=== PATIENT | female | born 1940 | race Caucasian/White ===

== ENCOUNTER 2017-01-18 09:37 | Inpatient (IN) ==
[2017-01-18] MEDS: Fenofibrate 54 MG TABLET PO SCH (21:06)
[2017-01-19 05:15] LABS: INR 2.4; Prothrombin Time 25.8 Seconds (9.4-12.1)
[2017-01-19 05:17] LABS: Activated Partial Thrombo Time 36.9 Seconds (26.0-36.0)
[2017-01-19] MEDS: *HR* OxyCODONE/APAP 5/325 TABLET PO PRN ×3 (05:18→19:56)
[2017-01-19 05:22] LABS: Basophils % 0.5 %; Eosinophils # 0.2 K/mcL (0.0-0.6); Eosinophils % 2.5 %; Hematocrit 26.6 % (35.3-44.9); Hemoglobin 8.8 g/dL (11.5-15.4); Immature Granulocytes % 0.6 % (0-4); Lymphocytes # 2.2 K/mcL (0.6-4.6); Lymphocytes % 26.8 %; Mean Corpuscular HGB Conc 33.1 g/dL (31.6-35.5); Mean Corpuscular Hemoglobin 30.8 pg (28.0-33.3); Mean Platelet Volume 10.4 fL (9.4-12.4); Monocytes # 0.8 K/mcL (0.0-1.3); Monocytes % 9.4 %; Platelet Count 307 K/mcL (140-400); Red Blood Count 2.86 M/mcL (3.82-4.97); Red Cell Distribution Width 13.9 % (11.5-14.5); Segmented Neutrophils % 60.2 %
[2017-01-19 05:26] LABS: Calcium 9.4 mg/dL (8.6-10.8); Potassium 4.3 mEq/L (3.5-4.5)
--- NOTE | 2017-01-19 07:29 | Internal Med History&Physical ---
Date of Encounter: 01/19/17 Time of Encounter: 07:26 Assessment and Plan (1) HTN (hypertension) Current visit: No Status: Chronic on meds stable conitnue home meds Qualifiers: Hypertension type: essential hypertension Qualified Code(s): I10 - Essential (primary) hypertension (2) CAD (coronary artery disease) Current visit: No Status: Chronic hx of CAD stable on meds . S/P stent some time ago continue present meds on beta blockers and cholesterol control Qualifiers: Associated angina: without angina Qualified Code(s): I25.10 - Atherosclerotic heart disease of [place] coronary artery without angina pectoris (3) Hypothyroid Current visit: No Status: Chronic Hx f Hypothyroid . On Synthyroid continue meds. Labs if needed especially if not done recently Qualifiers: Hypothyroidism type: unspecified Qualified Code(s): E03.9 - Hypothyroidism , unspecified (4) A-fib Current visit: No Status: Chronic hx of proximal A fib She is in regular rate and rhythm . Continue to monitor Qualifiers: Atrial fibrillation type: paroxysmal Qualified Code(s): I48.0 - Paroxysmal atrial fibrillation (5) Anemia Current visit: Yes Status: Chronic stable s/p surgery On iron supplement Qualifiers: Anemia type: iron deficiency Qualified Code(s): D50.0 - Iron deficiency anemia secondary to blood loss (chronic) (6) Gout Current visit: No Status: Chronic on Allupurinol . will get labs if needed . stable at the present time Qualifiers: Gout site: unspecified site Qualified Code(s): M10.9 - Gout, unspecified (7) Status post knee surgery Current visit: Yes Status: Acute s/p surgery doing fine on rehab Overall condition is stable . She is on DVT prophalxsis . She is on warfarin , most likely due to hx of Proxi A fib . Will need to review her records/ Internal Medicine - H&P: HPI Admitted From: Hospital to Hospital Transfer Plans for Post Hospital Care: Home History of present illness: Ms. Skinner is a 76 year old female with significant hx of HTN , PE about few years ago ,was admitted s/p Knee Surgery left side for rehab and continuation of treatment . She denies any complains at the present time . No fever or chill nausea vomiting or diarrhea No headache weakness of arms or legs or any focal weakness . No chest pain SOB or any other complains Incision site pain is well controlled . no loss of weight no seizures . Overall she feels well She is able to manage her affairs at home by her self Past Med Surg Social Fam HX - Past Medical History Medical history: arthritis, atrial fibrillation, cancer, CHF, DVT, GERD, hyperlipidemia, pulmonary embolus, renal disease, thyroid disease, other Psychiatric history: no psych history - Past Surgical History Surgical History: angioplasty/stent, appendectomy, breast surgery, cholecystectomy, knee replacement, other - Social History Smoking Status: Never smoker Smokeless Tobacco Status: No Alcohol use: none Drug use: none - Family History Mother Living Status: Cause of : heart disease Hx Family Cardiac Disorders: Yes Internal Medicine - H&P: Meds Albuterol Sulfate [Albuterol Inhaler] 2 puff IH Q4HR PRN 01/18/17 [History] Allopurinol [Zyloprim 100 MG] 100 mg PO DAILY 01/18/17 [History] Aspirin [Ecotrin] 325 mg PO DAILY 01/18/17 [History] Bisoprolol Fumarate [Zebeta] 5 mg PO DAILY 01/18/17 [History] Cholecalciferol (D-3) [Vitamin D] 2,000 unit PO DAILY 01/18/17 [History] Fenofibrate Nanocrystallized [Tricor] 48 mg PO HS 01/18/17 [History] Ferrous Sulfate [Iron] 325 mg PO BIDWM 01/18/17 [History] Furosemide [Lasix] 20 mg PO DAILY 01/18/17 [History] Lansoprazole [Prevacid] 15 mg PO DAILY PRN 01/18/17 [History] Levothyroxine [Synthroid] 75 mcg PO 1200 01/18/17 [History] amLODIPine [Norvasc] 5 mg PO DAILY 01/18/17 [History] 3 Allergy/AdvReac Type Severity Reaction Status Date / Time No Known Allergies Allergy Verified 01/18/17 16:20 All Systems PM: A 10-system review of systems was performed and is negative for pertinent findings except as documented above in the HPI. - Constitutional Constitutional: no anorexia, no chills, no excessive sweating, no fatigue, no fever(s), no falls, no lethargy, no malaise, no night sweats, no weakness, no weight gain - EENT Eyes: no blurry vision, no decreased night vision, no diplopia, no discharge, no dry eye, no itchy eyes Ears: no ear discharge, no ear pain, no tinnitus Nose, mouth and throat: no change in voice, no dental pain, no dry mouth, no dysphagia, no epistaxis - Breasts Breasts: no mass, no nipple discharge, no swelling, no other Additional comments: hx of mastectomy left side due to ca breast - Cardiovascular Cardiovascular ROS IM: no chest pain, no claudication, no diaphoresis, no dyspnea, no dyspnea on exertion, no edema, no irregular heart rhythm, no lightheadedness, no orthopnea - Respiratory Respiratory: no cough, no dyspnea, no hemoptysis, no dyspnea on exertion, no wheezing, no snoring, no pain on inspiration, no chest congestion, no excessive phlegm production - Gastrointestinal Gastrointestinal: no abdominal pain, no belching, no bloating, no change in bowel habits, no coffee ground emesis, no cramping, no diarrhea, no dyspepsia, no dysphagia, no excessive flatus, no fecal incontinence, no heartburn, no hematemesis, no loose stools - Genitourinary Genitourinary: no change in urinary stream, no urinary frequency, no urinary hesitancy, no urinary urgency, no vaginal discharge - Musculoskeletal Musculoskeletal ROS IM: no arthralgias, no back pain, no muscle cramps, no myalgias - Neurological Neurological ROS: no abnormal gait, no abnormal speech, no disequilibrium, no dizziness, no focal weakness, no frequent falls, no memory loss, no paresthesias - Endocrine Additional comments: menopause - Hematologic/Lymphatic Hematologic/Lymphatic: no easy bleeding, no lymphadenopathy - Constitutional Vitals: Temp Pulse Resp BP Pulse Ox 98.6 F 77 20 158/71 91 01/19/17 04:02 01/19/17 04:02 01/19/17 04:02 01/19/17 04:02 01/19/17 04:02 General appearance: Absent: cooperative, A&O X 3, pleasant, no acute distress - Head Head exam: Present: normal inspection - Eye Eye exam: Present: EOMI, PERRL. Absent: conjunctival injection, periorbital swelling, scleral icterus, conjuntiva pink, sclera anicteric - ENT ENT exam: Present: mucous membranes moist, normal oropharynx - Neck Neck exam general surgery: Present: full ROM, normal inspection, supple. Absent : tenderness, nuchal rigidity, thyromegaly - Respiratory Respiratory exam: Present: CTAB. Absent: chest wall tenderness, decreased breath sounds, rhonchi, wheezes Additional comments: Air entry all lungs jimenez essentially clear - Cardiovascular Cardiovascular exam: Present: RRR, systolic murmur. Absent: JVD, tachycardia Additional comments: systolic murmur prominent at 2nd intercostal area left sternum radiates to both neck both sides - GI/Abdominal GI/Abdominal exam: Present: normal bowel sounds, soft. Absent: distended, guarding, mass, pulsatile mass, rebound, rigid, tenderness, no peritoneal signs - Rectal Rectal exam: Present: deferred - Additional comments: Deferred - Extremities Exam Extremities exam: Present: radial pulses palpable and symmetrical. Absent: cyanotic, full ROM, mottling, pedal edema, tenderness - Back Exam Back exam: Present: normal inspection. Absent: CVA tenderness (L), CVA tenderness (R), muscle spasm, tenderness - Neurological Exam Neurological exam: Present: alert, CN II-XII intact, oriented X3, reflexes normal, no focal deficits. Absent: facial droop, speech deficit - Skin Skin exam: Present: intact. Absent: abrasion, cyanosis, erythema, excoriation, rash Internal Med - H&P Results - Labs CBC & Chem 7: 01/19/17 05:05 01/19/17 05:05 Labs: Short CBC 01/19/17 Range/Units 05:05 WBC 8.3 (4.3-11.1) K/mcL Hgb 8.8 L (11.5-15.4) g/dL Hct 26.6 L (35.3-44.9) % Plt Count 307 (140-400) K/mcL Neutrophils # 5.0 (1.6-8.9) K/mcL BMP 01/19/17 05:05 Sodium 139 Potassium 4.3 Chloride 107 Carbon Dioxide 20 BUN 22 H Creatinine 1.15 H Glucose 88 Calcium 9.4 - VTE Documentation of Mechanical Device: Graduated compression elastic hosiery
[2017-01-19] MEDS: Aspirin Enteric Coated 325 MG Tablet PO SCH (09:00)
[2017-01-19] MEDS: Celecoxib 200 MG CAPSULE PO SCH (09:00)
[2017-01-19] MEDS: amLODIPine 5 MG TABLET PO SCH (09:00)
[2017-01-19] MEDS: Furosemide 20 MG TABLET PO SCH (09:00)
[2017-01-19] MEDS: BISOPROLOL FUMARATE 5 MG PO SCH (09:01)
[2017-01-19] MEDS: Cholecalciferol (D-3) 1,000 UNIT TABLET PO SCH (09:01)
[2017-01-19] MEDS: *HR* Warfarin 1 MG TABLET PO SCH (16:49)
[2017-01-19] MEDS: Fenofibrate 54 MG TABLET PO SCH (19:57)
[2017-01-20 05:48] LABS: Calcium 9.2 mg/dL (8.6-10.8); Potassium 4.9 mEq/L (3.5-4.5)
[2017-01-20] MEDS: *HR* OxyCODONE/APAP 5/325 TABLET PO PRN ×2 (06:40→20:15)
[2017-01-20 07:36] LABS: Basophils % 0.5 %; Eosinophils # 0.4 K/mcL (0.0-0.6); Eosinophils % 6.2 %; Hematocrit 26.7 % (35.3-44.9); Hemoglobin 8.8 g/dL (11.5-15.4); Immature Granulocytes % 0.8 % (0-4); Lymphocytes # 1.8 K/mcL (0.6-4.6); Lymphocytes % 27.5 %; Mean Platelet Volume 9.8 fL (9.4-12.4); Monocytes # 0.7 K/mcL (0.0-1.3); Monocytes % 10.5 %; Neutrophils # 3.6 K/mcL (1.6-8.9); Platelet Count 328 K/mcL (140-400); Red Blood Count 2.84 M/mcL (3.82-4.97); Red Cell Distribution Width 13.8 % (11.5-14.5); Segmented Neutrophils % 54.5 %
[2017-01-20 07:47] LABS: INR 2.1; Prothrombin Time 22.9 Seconds (9.4-12.1)
[2017-01-20 07:50] LABS: Activated Partial Thrombo Time 28.7 Seconds (26.0-36.0)
--- NOTE | 2017-01-20 08:26 | Internal Med Progress Note ---
Date of Encounter: 01/20/17 Time of Encounter: 08:23 - Assessment and plan (1) HTN (hypertension) Current Visit: No Status: Chronic Assessment and plan: slight high will follow . On multiple meds Qualifiers: Hypertension type: essential hypertension Qualified Code(s): I10 - Essential (primary) hypertension (2) CAD (coronary artery disease) Current Visit: No Status: Chronic Assessment and plan: stable no acute issues Qualifiers: Associated angina: without angina Qualified Code(s): I25.10 - Atherosclerotic heart disease of [place] coronary artery without angina pectoris (3) Hypothyroid Current Visit: No Status: Chronic Assessment and plan: on meds stable TSH is pending Qualifiers: Hypothyroidism type: unspecified Qualified Code(s): E03.9 - Hypothyroidism , unspecified (4) A-fib Current Visit: No Status: Chronic Assessment and plan: Hx of A fib On anticoagulation rate stable on warfarin INR is stable Noted mild increase in creatinine and K levels . She is on Lasix will increase fluid intake and followup . Qualifiers: Atrial fibrillation type: paroxysmal Qualified Code(s): I48.0 - Paroxysmal atrial fibrillation (5) Anemia Current Visit: Yes Status: Chronic Assessment and plan: stable Labs noted same . On iron no new issues Qualifiers: Anemia type: iron deficiency Qualified Code(s): D50.0 - Iron deficiency anemia secondary to blood loss (chronic) (6) Gout Current Visit: No Status: Chronic Assessment and plan: stable no pain . gout is stable on meds conintue present dose and medication Qualifiers: Gout site: unspecified site Qualified Code(s): M10.9 - Gout, unspecified (7) Status post knee surgery Current Visit: Yes Status: Acute Assessment and plan: stable pain is well controlled . starting rehab - Subjective Interval history: No new complains Slpet well . S/ P Knee replacement . Her pain is well controlled . No nausea vomiting or diarrhea No constipation NO SOB overall feels well - Constitutional Vitals: Temp Pulse Resp BP Pulse Ox 98.2 F 73 18 154/59 94 01/20/17 07:14 01/20/17 07:14 01/20/17 07:14 01/20/17 07:14 01/20/17 07:14 General appearance: Absent: cooperative, A&O X 3, pleasant, no acute distress - Head Head exam: Present: normal inspection - Eye Eye exam: Present: EOMI, normal appearance, PERRL - ENT ENT exam: Present: mucous membranes moist - Neck Neck exam general surgery: Present: supple. Absent: tenderness, nuchal rigidity Additional comments: carotid bruits negative however cardiac murmurs heard both side - Respiratory Respiratory exam: Present: CTAB. Absent: decreased breath sounds, respiratory distress, stridor, wheezes, tachypnea - Cardiovascular Cardiovascular exam: Present: RRR, systolic murmur. Absent: bradycardia, clicks , gallop, irregular rhythm, JVD Additional comments: systolic murmur radiates to both carotids - GI/Abdominal GI/Abdominal exam: Present: normal bowel sounds, soft. Absent: guarding, rebound, rigid - Extremities Exam Extremities exam: Present: warm. Absent: pedal edema, tenderness Internal Medicine: Result - Labs CBC & Chem 7: 01/20/17 07:29 01/20/17 05:25 Labs: Short CBC 01/20/17 Range/Units 07:29 WBC 6.7 (4.3-11.1) K/mcL Hgb 8.8 L (11.5-15.4) g/dL Hct 26.7 L (35.3-44.9) % Plt Count 328 (140-400) K/mcL Neutrophils # 3.6 (1.6-8.9) K/mcL BMP 01/20/17 05:25 Sodium 140 Potassium 4.9 H Chloride 109 Carbon Dioxide 19 BUN 28 H Creatinine 1.52 H Glucose 84 Calcium 9.2 - ABG Interpretation ABG results: PT/INR, D-dimer PT 22.9 Seconds (9.4-12.1) H 01/20/17 07:29 - VTE Documentation of Mechanical Device: Graduated compression elastic hosiery Consult Discharge Plan - Plan Referrals: Mima Sood [Primary Care Provider] - (Follow up with Leo Echols MD in 2 weeks. [phone] Follow up with Jake Perez MD. Pulmonary Function Test on April 02, 2017 at 2:30. [phone]. )
[2017-01-20] MEDS: Cholecalciferol (D-3) 1,000 UNIT TABLET PO SCH (08:49)
[2017-01-20] MEDS: Celecoxib 200 MG CAPSULE PO SCH (08:49)
[2017-01-20] MEDS: Aspirin Enteric Coated 325 MG Tablet PO SCH (08:50)
[2017-01-20] MEDS: Furosemide 20 MG TABLET PO SCH (08:50)
[2017-01-20] MEDS: amLODIPine 5 MG TABLET PO SCH (08:50)
[2017-01-20] MEDS: BISOPROLOL FUMARATE 5 MG PO SCH (08:51)
[2017-01-20] MEDS: *HR* Warfarin 1 MG TABLET PO SCH (17:38)
[2017-01-20] MEDS: Fenofibrate 54 MG TABLET PO SCH (20:13)
[2017-01-21] MEDS: *HR* OxyCODONE/APAP 5/325 TABLET PO PRN ×3 (05:32→21:55)
[2017-01-21 05:37] LABS: Prothrombin Time 22.1 Seconds (9.4-12.1)
[2017-01-21] MEDS ORDERED: Acetaminophen 325 MG TABLET PO STA (07:49)
[2017-01-21] MEDS: Celecoxib 200 MG CAPSULE PO SCH (08:11)
[2017-01-21] MEDS: Cholecalciferol (D-3) 1,000 UNIT TABLET PO SCH (08:11)
[2017-01-21] MEDS: Aspirin Enteric Coated 325 MG Tablet PO SCH (08:11)
[2017-01-21] MEDS: Furosemide 20 MG TABLET PO SCH (08:11)
[2017-01-21] MEDS: amLODIPine 5 MG TABLET PO SCH (08:11)
[2017-01-21] MEDS: BISOPROLOL FUMARATE 5 MG PO SCH (08:12)
[2017-01-21] MEDS ORDERED: Acetaminophen 325 MG TABLET PO PRN (08:14)
--- NOTE | 2017-01-21 08:45 | Internal Med Progress Note ---
Date of Encounter: 01/21/17 Time of Encounter: 08:43 - Assessment and plan (1) HTN (hypertension) Current Visit: No Status: Chronic Assessment and plan: one episode of low blood pressure most likely due to medications will follow and adjsut meds her beta nas from home was not given last night. On Lasix as well . Will adjust meds as needed Qualifiers: Hypertension type: essential hypertension Qualified Code(s): I10 - Essential (primary) hypertension (2) CAD (coronary artery disease) Current Visit: No Status: Chronic Qualifiers: Associated angina: without angina Qualified Code(s): I25.10 - Atherosclerotic heart disease of [place] coronary artery without angina pectoris (3) Hypothyroid Current Visit: No Status: Chronic Assessment and plan: stable Qualifiers: Hypothyroidism type: unspecified Qualified Code(s): E03.9 - Hypothyroidism , unspecified (4) A-fib Current Visit: No Status: Chronic Assessment and plan: stable rate on Oral Anticoagulation Qualifiers: Atrial fibrillation type: paroxysmal Qualified Code(s): I48.0 - Paroxysmal atrial fibrillation (5) Anemia Current Visit: Yes Status: Chronic Assessment and plan: on oral med s stable Qualifiers: Anemia type: iron deficiency Qualified Code(s): D50.0 - Iron deficiency anemia secondary to blood loss (chronic) (6) Gout Current Visit: No Status: Chronic Assessment and plan: stable on meds Qualifiers: Gout site: unspecified site Qualified Code(s): M10.9 - Gout, unspecified (7) Status post knee surgery Current Visit: Yes Status: Acute Assessment and plan: pain is some what better add Tylenol for pain she is on Celebrex as well . She could get some extra Tylenol for her pain before PT or Percocet as needed - Subjective Interval history: no new complains She had episodes of low blood pressure afternoon no other complains and recovered from low blood pressure later after rest. No fever or chill no nausea vomiting or diarrhea. She still ahs some pain knee otherwise doing well Discussed with her need for pain medications as she is not using it - Constitutional Vitals: Temp Pulse Resp BP Pulse Ox 98.2 F 78 16 159/69 92 01/21/17 07:13 01/21/17 07:13 01/21/17 07:13 01/21/17 07:13 01/21/17 07:13 General appearance: Absent: cooperative, A&O X 3, pleasant, no acute distress - Head Head exam: Present: normal inspection - Eye Eye exam: Present: EOMI, PERRL - ENT ENT exam: Present: mucous membranes moist - Neck Neck exam general surgery: Present: supple. Absent: tenderness, nuchal rigidity - Respiratory Respiratory exam: Present: CTAB. Absent: respiratory distress, rhonchi, stridor , wheezes, tachypnea - Cardiovascular Cardiovascular exam: Present: RRR. Absent: irregular rhythm, JVD Additional comments: systolic mummer as before no change radiates to neck both sides - GI/Abdominal GI/Abdominal exam: Present: normal bowel sounds, soft. Absent: pulsatile mass, rebound, rigid - Incison Incision: Present: clean and dry - Neurological Exam Neurological exam: Present: CN II-XII intact, normal gait, oriented X3, no focal deficits. Absent: motor sensory deficit Internal Medicine: Result - Labs CBC & Chem 7: 01/20/17 07:29 01/20/17 05:25 - ABG Interpretation ABG results: PT/INR, D-dimer PT 22.1 Seconds (9.4-12.1) H 01/21/17 05:30 - VTE Documentation of Mechanical Device: Graduated compression elastic hosiery Consult Discharge Plan - Plan Referrals: Mima Sood [Primary Care Provider] - (Follow up with Leo Echols MD in 2 weeks. [phone] Follow up with Jake Perez MD. Pulmonary Function Test on April 02, 2017 at 2:30. [phone]. )
[2017-01-21] MEDS: *HR* Warfarin 1 MG TABLET PO SCH (17:33)
[2017-01-21] MEDS: Fenofibrate 54 MG TABLET PO SCH (21:55)
[2017-01-22 05:22] LABS: Prothrombin Time 22.2 Seconds (9.4-12.1)
[2017-01-22 05:31] LABS: Calcium 9.5 mg/dL (8.6-10.8); Potassium 4.4 mEq/L (3.5-4.5)
[2017-01-22] MEDS: *HR* OxyCODONE/APAP 5/325 TABLET PO PRN ×3 (06:56→20:39)
[2017-01-22] MEDS: Celecoxib 200 MG CAPSULE PO SCH (09:16)
[2017-01-22] MEDS: Furosemide 20 MG TABLET PO SCH (09:16)
[2017-01-22] MEDS: Aspirin Enteric Coated 325 MG Tablet PO SCH (09:16)
[2017-01-22] MEDS: BISOPROLOL FUMARATE 5 MG PO SCH (09:17)
[2017-01-22] MEDS: Cholecalciferol (D-3) 1,000 UNIT TABLET PO SCH (09:17)
--- NOTE | 2017-01-22 09:42 | Internal Med Progress Note ---
Date of Encounter: 01/22/17 Time of Encounter: 09:37 - Assessment and plan (1) HTN (hypertension) Current Visit: No Status: Chronic Assessment and plan: stable at the present time no new change Qualifiers: Hypertension type: essential hypertension Qualified Code(s): I10 - Essential (primary) hypertension (2) CAD (coronary artery disease) Current Visit: No Status: Chronic Assessment and plan: stable no new change continue present medication Qualifiers: Associated angina: without angina Qualified Code(s): I25.10 - Atherosclerotic heart disease of [place] coronary artery without angina pectoris (3) Hypothyroid Current Visit: No Status: Chronic Assessment and plan: stable will get TSH next blood draw Qualifiers: Hypothyroidism type: unspecified Qualified Code(s): E03.9 - Hypothyroidism , unspecified (4) A-fib Current Visit: No Status: Chronic Assessment and plan: rate stable on Warfarin INR stable Qualifiers: Atrial fibrillation type: paroxysmal Qualified Code(s): I48.0 - Paroxysmal atrial fibrillation (5) Anemia Current Visit: Yes Status: Chronic Assessment and plan: no new change on iron supplement stable Qualifiers: Anemia type: iron deficiency Qualified Code(s): D50.0 - Iron deficiency anemia secondary to blood loss (chronic) (6) Gout Current Visit: No Status: Chronic Qualifiers: Gout site: unspecified site Qualified Code(s): M10.9 - Gout, unspecified (7) Status post knee surgery Current Visit: Yes Status: Acute Assessment and plan: stable pain decently control no new change getting rehab (8) Renal insufficiency Current Visit: Yes Status: Acute Assessment and plan: noted slight increase in her creatinine . Most like pre renal in nature Advised to increase Opral intake and fluid Post voidal bladder scan to assess neurogenic bladder Conservative management at the present time will follow with lab on Friday - Subjective Interval history: no new complains she is some what worried about high blood pressure no chest pain nasuea vomiting or diarrhea overall she feels fine her pain is decently controlled - Constitutional Vitals: Temp Pulse Resp BP Pulse Ox 97.5 F L 77 16 143/68 92 01/22/17 07:17 01/22/17 07:17 01/22/17 07:17 01/22/17 07:17 01/22/17 07:17 General appearance: Absent: cooperative, A&O X 3, pleasant, no acute distress - Head Head exam: Present: normal inspection - Eye Eye exam: Present: EOMI, PERRL - ENT ENT exam: Present: mucous membranes moist, normal oropharynx - Neck Neck exam general surgery: Present: supple. Absent: tenderness, nuchal rigidity Additional comments: murmurs both sides - Respiratory Respiratory exam: Present: CTAB. Absent: decreased breath sounds, respiratory distress, rhonchi, wheezes - Cardiovascular Cardiovascular exam: Present: RRR, systolic murmur. Absent: irregular rhythm, JVD Additional comments: radiateds to her neck both sides more pronounced at 2nd intercostal - GI/Abdominal GI/Abdominal exam: Present: normal bowel sounds, soft. Absent: mass, rebound, rigid - Extremities Exam Extremities exam: Absent: pedal edema, tenderness Internal Medicine: Result - Labs CBC & Chem 7: 01/20/17 07:29 01/22/17 05:05 Labs: BMP 01/22/17 05:05 Sodium 139 Potassium 4.4 Chloride 106 Carbon Dioxide 24 BUN 35 H Creatinine 1.70 H Glucose 86 Calcium 9.5 - ABG Interpretation ABG results: PT/INR, D-dimer PT 22.2 Seconds (9.4-12.1) H 01/22/17 05:05 - VTE Documentation of Mechanical Device: Graduated compression elastic hosiery Consult Discharge Plan - Plan Referrals: Mima Sood [Primary Care Provider] - (Follow up with Leo Echols MD in 2 weeks. [phone] Follow up with Jake Perez MD. Pulmonary Function Test on April 02, 2017 at 2:30. [phone]. )
[2017-01-22] MEDS: amLODIPine 5 MG TABLET PO SCH (16:58)
[2017-01-22] MEDS: *HR* Warfarin 1 MG TABLET PO SCH (16:59)
[2017-01-22] MEDS: Fenofibrate 54 MG TABLET PO SCH (20:39)
[2017-01-23 05:33] LABS: INR 1.8; Prothrombin Time 20.1 Seconds (9.4-12.1)
[2017-01-23] MEDS: *HR* OxyCODONE/APAP 5/325 TABLET PO PRN ×2 (05:56→17:36)
--- NOTE | 2017-01-23 09:40 | Internal Med Progress Note ---
Date of Encounter: 01/23/17 Time of Encounter: 09:38 - Assessment and plan (1) HTN (hypertension) Current Visit: No Status: Chronic Qualifiers: Hypertension type: essential hypertension Qualified Code(s): I10 - Essential (primary) hypertension (2) CAD (coronary artery disease) Current Visit: No Status: Chronic Qualifiers: Associated angina: without angina Qualified Code(s): I25.10 - Atherosclerotic heart disease of [place] coronary artery without angina pectoris (3) Hypothyroid Current Visit: No Status: Chronic Qualifiers: Hypothyroidism type: unspecified Qualified Code(s): E03.9 - Hypothyroidism , unspecified (4) A-fib Current Visit: No Status: Chronic Qualifiers: Atrial fibrillation type: paroxysmal Qualified Code(s): I48.0 - Paroxysmal atrial fibrillation (5) Anemia Current Visit: Yes Status: Chronic Qualifiers: Anemia type: iron deficiency Qualified Code(s): D50.0 - Iron deficiency anemia secondary to blood loss (chronic) (6) Gout Current Visit: No Status: Chronic Qualifiers: Gout site: unspecified site Qualified Code(s): M10.9 - Gout, unspecified (7) Status post knee surgery Current Visit: Yes Status: Acute (8) Renal insufficiency Current Visit: Yes Status: Acute - Subjective Interval history: feelsing tired today She took two tab of percocet states that she was having some what pain and felt that two tab would be better before rehab After taking shower feels tired and wants to sleep no chest pain nausea vomiting or any fever or chill - Constitutional Vitals: Temp Pulse Resp BP Pulse Ox 97.7 F 65 14 136/59 96 01/23/17 05:29 01/23/17 05:29 01/23/17 05:29 01/23/17 05:29 01/23/17 05:29 General appearance: Absent: cooperative, A&O X 3, pleasant, no acute distress - Eye Eye exam: Present: EOMI, PERRL. Absent: conjuntiva pink, sclera anicteric - Neck Neck exam general surgery: Present: full ROM, supple. Absent: tenderness, nuchal rigidity - Respiratory Respiratory exam: Present: CTAB. Absent: chest wall tenderness, respiratory distress, stridor, wheezes - Cardiovascular Cardiovascular exam: Present: RRR. Absent: irregular rhythm, JVD - GI/Abdominal GI/Abdominal exam: Present: normal bowel sounds, soft. Absent: mass, pulsatile mass, rebound - Incison Incision: Present: clean and dry, intact Comments: still has original dressing clean no discharge noted - Neurological Exam Neurological exam: Present: CN II-XII intact, normal gait, oriented X3, no focal deficits Internal Medicine: Result - Labs CBC & Chem 7: 01/20/17 07:29 01/22/17 05:05 - ABG Interpretation ABG results: PT/INR, D-dimer PT 20.1 Seconds (9.4-12.1) H 01/23/17 05:15 - VTE Documentation of Mechanical Device: Graduated compression elastic hosiery Consult Discharge Plan - Plan Referrals: Mima Sood [Primary Care Provider] - (Follow up with Leo Echols MD in 2 weeks. [phone] Follow up with Jake Perez MD. Pulmonary Function Test on April 02, 2017 at 2:30. [phone]. )
[2017-01-23] MEDS: Aspirin Enteric Coated 325 MG Tablet PO SCH (09:44)
[2017-01-23] MEDS: Cholecalciferol (D-3) 1,000 UNIT TABLET PO SCH (09:44)
[2017-01-23] MEDS: Furosemide 20 MG TABLET PO SCH (09:44)
[2017-01-23] MEDS: Celecoxib 200 MG CAPSULE PO SCH (09:44)
[2017-01-23] MEDS: BISOPROLOL FUMARATE 5 MG PO SCH (14:01)
[2017-01-23] MEDS: *HR* Warfarin 1 MG TABLET PO SCH (17:37)
[2017-01-23] MEDS: amLODIPine 5 MG TABLET PO SCH (17:37)
[2017-01-23] MEDS: Fenofibrate 54 MG TABLET PO SCH (21:56)
[2017-01-24] MEDS: *HR* OxyCODONE/APAP 5/325 TABLET PO PRN ×4 (04:57→21:38)
[2017-01-24 05:34] LABS: INR 1.6; Prothrombin Time 17.6 Seconds (9.4-12.1)
[2017-01-24 05:43] LABS: Calcium 9.5 mg/dL (8.6-10.8); Potassium 4.5 mEq/L (3.5-4.5)
[2017-01-24] MEDS: Furosemide 20 MG TABLET PO SCH (08:51)
[2017-01-24] MEDS: Cholecalciferol (D-3) 1,000 UNIT TABLET PO SCH (08:51)
[2017-01-24] MEDS: Celecoxib 200 MG CAPSULE PO SCH (08:51)
[2017-01-24] MEDS: Aspirin Enteric Coated 325 MG Tablet PO SCH (08:51)
[2017-01-24] MEDS: BISOPROLOL FUMARATE 5 MG PO SCH (08:53)
--- NOTE | 2017-01-24 12:51 | Internal Med Progress Note ---
Date of Encounter: 01/24/17 Time of Encounter: 12:49 - Assessment and plan (1) HTN (hypertension) Current Visit: No Status: Chronic Assessment and plan: stable no new change Qualifiers: Hypertension type: essential hypertension Qualified Code(s): I10 - Essential (primary) hypertension (2) CAD (coronary artery disease) Current Visit: No Status: Chronic Assessment and plan: stable Qualifiers: Associated angina: without angina Qualified Code(s): I25.10 - Atherosclerotic heart disease of [place] coronary artery without angina pectoris (3) Hypothyroid Current Visit: No Status: Chronic Assessment and plan: TSH high increase dose to 100 Micro Followup Labs in 6 weeks Qualifiers: Hypothyroidism type: unspecified Qualified Code(s): E03.9 - Hypothyroidism , unspecified (4) A-fib Current Visit: No Status: Chronic Assessment and plan: Intermittent Stable rate on small dose of Warfarin INR low increase dose to 1.5 mg Qualifiers: Atrial fibrillation type: paroxysmal Qualified Code(s): I48.0 - Paroxysmal atrial fibrillation (5) Anemia Current Visit: Yes Status: Chronic Assessment and plan: stable Qualifiers: Anemia type: iron deficiency Qualified Code(s): D50.0 - Iron deficiency anemia secondary to blood loss (chronic) (6) Gout Current Visit: No Status: Chronic Qualifiers: Gout site: unspecified site Qualified Code(s): M10.9 - Gout, unspecified (7) Status post knee surgery Current Visit: Yes Status: Acute Assessment and plan: stable incision healing well (8) Renal insufficiency Current Visit: Yes Status: Acute Assessment and plan: Creatinine still the same increase fluid intake decrease Lasix to 10 mg starting Friday . Followup labs Bladder scan for retention - Subjective Interval history: Doing great the best . Had participated in her rehab and feels good Pain is well controlled No SOB no chest pain no nausea or vomiting - Constitutional Vitals: Temp Pulse Resp BP Pulse Ox 97.9 F 66 16 124/73 92 01/24/17 06:42 01/24/17 06:42 01/24/17 06:42 01/24/17 06:42 01/24/17 06:42 General appearance: Absent: cooperative, A&O X 3, pleasant, no acute distress - Head Head exam: Present: atraumatic - Eye Eye exam: Present: EOMI, PERRL Pupils: Present: PERRL - ENT ENT exam: Present: mucous membranes moist - Neck Neck exam general surgery: Present: supple. Absent: tenderness, nuchal rigidity - Respiratory Respiratory exam: Present: CTAB. Absent: chest wall tenderness, decreased breath sounds, respiratory distress, rhonchi, stridor, wheezes - Cardiovascular Cardiovascular exam: Present: RRR. Absent: irregular rhythm, JVD Additional comments: regular rhythm now - GI/Abdominal GI/Abdominal exam: Present: normal bowel sounds, soft. Absent: guarding, rebound, rigid - Extremities Exam Extremities exam: Absent: pedal edema, tenderness Internal Medicine: Result - Labs CBC & Chem 7: 01/20/17 07:29 01/24/17 05:00 Labs: BMP 01/24/17 05:00 Sodium 139 Potassium 4.5 Chloride 107 Carbon Dioxide 20 BUN 37 H Creatinine 1.75 H Glucose 86 Calcium 9.5 - ABG Interpretation ABG results: PT/INR, D-dimer PT 17.6 Seconds (9.4-12.1) H 01/24/17 05:00 - VTE Documentation of Mechanical Device: Graduated compression elastic hosiery Consult Discharge Plan - Plan Referrals: Mima Sood [Primary Care Provider] - (Follow up with Leo Echols MD in 2 weeks. [phone] Follow up with Jake Perez MD. Pulmonary Function Test on April 02, 2017 at 2:30. [phone]. )
[2017-01-24] MEDS: amLODIPine 5 MG TABLET PO SCH (17:56)
[2017-01-24] MEDS: *HR* Warfarin 3 MG TABLET PO SCH (17:56)
[2017-01-24] MEDS: Fenofibrate 54 MG TABLET PO SCH (21:38)
--- NOTE | 2017-01-25 05:47 | Internal Med Progress Note ---
Date of Encounter: 01/25/17 Time of Encounter: 05:45 - Assessment and plan (1) HTN (hypertension) Current Visit: No Status: Chronic Qualifiers: Hypertension type: essential hypertension Qualified Code(s): I10 - Essential (primary) hypertension (2) CAD (coronary artery disease) Current Visit: No Status: Chronic Qualifiers: Associated angina: without angina Qualified Code(s): I25.10 - Atherosclerotic heart disease of [place] coronary artery without angina pectoris (3) Hypothyroid Current Visit: No Status: Chronic Qualifiers: Hypothyroidism type: unspecified Qualified Code(s): E03.9 - Hypothyroidism , unspecified (4) A-fib Current Visit: No Status: Chronic Qualifiers: Atrial fibrillation type: paroxysmal Qualified Code(s): I48.0 - Paroxysmal atrial fibrillation (5) Anemia Current Visit: Yes Status: Chronic Qualifiers: Anemia type: iron deficiency Qualified Code(s): D50.0 - Iron deficiency anemia secondary to blood loss (chronic) (6) Gout Current Visit: No Status: Chronic Qualifiers: Gout site: unspecified site Qualified Code(s): M10.9 - Gout, unspecified (7) Status post knee surgery Current Visit: Yes Status: Acute (8) Renal insufficiency Current Visit: Yes Status: Acute - Subjective Interval history: no new complains today doing fine pain is well controlled - Constitutional Vitals: Temp Pulse Resp BP Pulse Ox 97.6 F 64 16 118/54 90 01/24/17 19:26 01/24/17 19:26 01/24/17 19:26 01/24/17 19:26 01/24/17 19:26 General appearance: Present: cooperative, A&O X 3, pleasant, no acute distress. Absent: severe distress - Head Head exam: Present: atraumatic - Eye Eye exam: Present: EOMI, PERRL. Absent: scleral icterus - Neck Neck exam general surgery: Present: supple. Absent: tenderness, nuchal rigidity - Respiratory Respiratory exam: Present: CTAB. Absent: chest wall tenderness, respiratory distress, rhonchi, wheezes - Cardiovascular Cardiovascular exam: Present: RRR, systolic murmur. Absent: irregular rhythm, JVD - GI/Abdominal GI/Abdominal exam: Present: normal bowel sounds, soft. Absent: distended, guarding, mass, rigid - Neurological Exam Neurological exam: Present: alert, CN II-XII intact, oriented X3, strengths equal and symetr throughout. Absent: facial droop, speech deficit Internal Medicine: Result - Labs CBC & Chem 7: 01/20/17 07:29 01/24/17 05:00 Labs: BMP 01/24/17 05:00 Sodium 139 Potassium 4.5 Chloride 107 Carbon Dioxide 20 BUN 37 H Creatinine 1.75 H Glucose 86 Calcium 9.5 - ABG Interpretation ABG results: PT/INR, D-dimer PT 17.6 Seconds (9.4-12.1) H 01/24/17 05:00 - VTE Documentation of Mechanical Device: Graduated compression elastic hosiery Consult Discharge Plan - Plan Referrals: Mima Sood [Primary Care Provider] - (Follow up with Leo Echols MD in 2 weeks. [phone] Follow up with Jake Perez MD. Pulmonary Function Test on April 02, 2017 at 2:30. [phone]. )
[2017-01-25 05:56] LABS: INR 1.6; Prothrombin Time 17.6 Seconds (9.4-12.1)
[2017-01-25 06:05] LABS: Calcium 9.5 mg/dL (8.6-10.8)
[2017-01-25] MEDS: *HR* OxyCODONE/APAP 5/325 TABLET PO PRN ×3 (06:20→22:56)
[2017-01-25] MEDS: Celecoxib 200 MG CAPSULE PO SCH (09:02)
[2017-01-25] MEDS: Aspirin Enteric Coated 325 MG Tablet PO SCH (09:02)
[2017-01-25] MEDS: Cholecalciferol (D-3) 1,000 UNIT TABLET PO SCH (09:03)
[2017-01-25] MEDS: BISOPROLOL FUMARATE 5 MG PO SCH (09:04)
[2017-01-25] MEDS: amLODIPine 5 MG TABLET PO SCH (18:11)
[2017-01-25] MEDS: *HR* Warfarin 3 MG TABLET PO SCH (18:11)
[2017-01-25] MEDS: Fenofibrate 54 MG TABLET PO SCH (22:55)
[2017-01-26 06:00] LABS: INR 1.6; Prothrombin Time 17.6 Seconds (9.4-12.1)
--- NOTE | 2017-01-26 08:18 | Internal Med Progress Note ---
Date of Encounter: 01/26/17 Time of Encounter: 08:15 - Assessment and plan (1) HTN (hypertension) Current Visit: No Status: Chronic Assessment and plan: stable no new change continue present medications Qualifiers: Hypertension type: essential hypertension Qualified Code(s): I10 - Essential (primary) hypertension (2) CAD (coronary artery disease) Current Visit: No Status: Chronic Assessment and plan: stable , No evidence of CHF no angina she has chronic ystolic murmer and has been assessed and evaluated by her director of special services Qualifiers: Associated angina: without angina Qualified Code(s): I25.10 - Atherosclerotic heart disease of [place] coronary artery without angina pectoris (3) Hypothyroid Current Visit: No Status: Chronic Assessment and plan: stable On meds which were adjusted Qualifiers: Hypothyroidism type: unspecified Qualified Code(s): E03.9 - Hypothyroidism , unspecified (4) A-fib Current Visit: No Status: Chronic Assessment and plan: rate stable . On warfarin , INR low Increase dose Qualifiers: Atrial fibrillation type: paroxysmal Qualified Code(s): I48.0 - Paroxysmal atrial fibrillation (5) Anemia Current Visit: Yes Status: Chronic Assessment and plan: H/H is stable on iron no new complains of bleeding Qualifiers: Anemia type: iron deficiency Qualified Code(s): D50.0 - Iron deficiency anemia secondary to blood loss (chronic) (6) Gout Current Visit: No Status: Chronic Qualifiers: Gout site: unspecified site Qualified Code(s): M10.9 - Gout, unspecified (7) Status post knee surgery Current Visit: Yes Status: Acute Assessment and plan: stable improving pain is well controlled (8) Renal insufficiency Current Visit: Yes Status: Acute Assessment and plan: Creatinine has gone up . I think its prerenal . needs to assess post void urine as well. Continue conservative management . if it conitnues to sta high will needs assessment by renal as out patient . K level also high will follow low K diet - Subjective Interval history: She is doing ok with no new complains Apparently yesterday while exercising PT noted that her Pulse Oxy dropped to 86% however ir comes bck to above 92% on rest . She was also somewhat anxious at that time She denies any chest pain palpitation nausea vomiting or Orthopnea . Her pain is well controlled she is complaining of some constipation. At the present time she is lying flat and slept with one pillow only - Constitutional Vitals: Temp Pulse Resp BP Pulse Ox 98.3 F 65 18 127/60 94 01/25/17 19:28 01/25/17 19:28 01/25/17 19:28 01/25/17 19:28 01/25/17 19:28 General appearance: Present: cooperative, A&O X 3, pleasant, no acute distress. Absent: severe distress - Head Head exam: Present: atraumatic - Eye Eye exam: Present: EOMI, PERRL, conjuntiva pink. Absent: scleral icterus - Neck Neck exam general surgery: Present: supple. Absent: tenderness, nuchal rigidity - Respiratory Respiratory exam: Present: CTAB. Absent: accessory muscle use, chest wall tenderness, decreased breath sounds, respiratory distress, rhonchi, wheezes Additional comments: essentially clear on both lung jimenez - Cardiovascular Cardiovascular exam: Present: irregular rhythm, systolic murmur. Absent: gallop , JVD, tachycardia Additional comments: rate is still irregular . ejection systolic murmer radiating to both carotids not a new findings - GI/Abdominal GI/Abdominal exam: Present: normal bowel sounds, soft. Absent: guarding, rebound, rigid - Incison Incision: Present: clean and dry, intact - Neurological Exam Neurological exam: Present: altered, CN II-XII intact, oriented X3, no focal deficits. Absent: facial droop, speech deficit Internal Medicine: Result - Labs CBC & Chem 7: 01/20/17 07:29 01/25/17 05:20 Labs: slightly increase in creatinine .Also noted to have high K . INR is still low - ABG Interpretation ABG results: PT/INR, D-dimer PT 17.6 Seconds (9.4-12.1) H 01/26/17 05:20 - VTE Documentation of Mechanical Device: Graduated compression elastic hosiery Consult Discharge Plan - Plan Referrals: Mima Sood [Primary Care Provider] - (Follow up with Leo Echols MD in 2 weeks. [phone] Follow up with Jake Perez MD. Pulmonary Function Test on April 02, 2017 at 2:30. [phone]. )
[2017-01-26] MEDS: Cholecalciferol (D-3) 1,000 UNIT TABLET PO SCH (09:14)
[2017-01-26] MEDS: Celecoxib 200 MG CAPSULE PO SCH (09:14)
[2017-01-26] MEDS: Aspirin Enteric Coated 325 MG Tablet PO SCH (09:15)
[2017-01-26] MEDS: BISOPROLOL FUMARATE 5 MG PO SCH (09:16)
[2017-01-26] MEDS: Furosemide 20 MG TABLET PO SCH (09:25)
--- NOTE | 2017-01-26 10:06 | Discharge Summary ---
Date of Encounter: 01/27/17 Time of Encounter: 08:07 - Discharge Diagnosis (1) HTN (hypertension) Priority: Secondary Status: Chronic Comments: She has hx of HTN . She was continued on her meds with stable results Seen today as well and she is doing very well back to her normal self She would lie to go home today instead of waiting till tomorrow . Discussed with Rehab team via Charge nurse and she is all set to go . F Qualifiers: Hypertension type: essential hypertension Qualified Code(s): I10 - Essential (primary) hypertension (2) CAD (coronary artery disease) Priority: Secondary Status: Chronic Comments: She had hx of CAD. her stay was unremarkable . No chest pain during this admission Qualifiers: Associated angina: without angina Qualified Code(s): I25.10 - Atherosclerotic heart disease of [place] coronary artery without angina pectoris (3) Hypothyroid Priority: Secondary Status: Chronic Comments: Her TSH was some what high . her mediation was adjusted . next TSH is due in February Qualifiers: Hypothyroidism type: unspecified Qualified Code(s): E03.9 - Hypothyroidism , unspecified (4) A-fib Priority: Secondary Status: Chronic Comments: She has hx of paroxysmal A fib. Her rate has been stable and she has been in regular rate during her stay . She was continued on wafarin . Her dose is being adjusted . She will require followup and further adjustments as outpt . Qualifiers: Atrial fibrillation type: paroxysmal Qualified Code(s): I48.0 - Paroxysmal atrial fibrillation (5) Anemia Priority: Secondary Status: Chronic Comments: Her hemoglobin had been low but stable she is on iron supplement. No evidence of any bleed during her stay . Qualifiers: Anemia type: iron deficiency Qualified Code(s): D50.0 - Iron deficiency anemia secondary to blood loss (chronic) (6) Gout Priority: Secondary Status: Chronic Comments: she has hx of gout . Her meds were continued. During this stay there was no complains of exacerbation Qualifiers: Gout site: unspecified site Qualified Code(s): M10.9 - Gout, unspecified (7) Status post knee surgery Priority: Primary Status: Acute Comments: s/p knee surgery . pain was managed with percocet and she did well in rehab (8) Renal insufficiency Priority: Secondary Status: Acute Comments: she was noted to have increase in her creatinine fluctuates and is back to close to her normal . All is related to poor intake and Lasix and is prerenal . Stable she should continue to monitor it as out patient - Discharge Medications Home Medications: Albuterol Sulfate [Albuterol Inhaler] 2 puff IH Q4HR PRN 01/18/17 [History] Allopurinol [Zyloprim 100 MG] 100 mg PO DAILY 01/18/17 [History] Aspirin [Ecotrin] 325 mg PO DAILY 01/18/17 [History] Bisoprolol Fumarate [Zebeta] 5 mg PO DAILY 01/18/17 [History] Cholecalciferol (D-3) [Vitamin D] 2,000 unit PO DAILY 01/18/17 [History] Fenofibrate Nanocrystallized [Tricor] 48 mg PO HS 01/18/17 [History] Ferrous Sulfate [Iron] 325 mg PO BIDWM 01/18/17 [History] Lansoprazole [Prevacid] 15 mg PO DAILY PRN 01/18/17 [History] amLODIPine [Norvasc] 5 mg PO DAILY 01/18/17 [History] Docusate [Colace] 100 mg PO BID 01/27/17 [Rx] Furosemide [Lasix] 10 mg PO DAILY tab 01/27/17 [Rx] Levothyroxine [Synthroid] 100 mcg PO DAILY@0630 tab 01/27/17 [Rx] OxyCODONE/APAP 5/325 [Percocet 5/325 MG] 2 each PO Q4HR PRN tab 01/27/17 [Rx] Warfarin [Coumadin] 2 mg PO DAILY@1800 tab 01/27/17 [Rx] Allergies/Adverse Reactions: 3 Allergy/AdvReac Type Severity Reaction Status Date / Time No Known Allergies Allergy Verified 01/18/17 16:20 Date of admission: 01/18/17 16:07 Primary care physician: Mima Sood Consults: 01/18/17 19:07 Consult to Occupational Therapy [CONS] Routine Comment: Evaluate, develop and implement POC Reason for Consult: left total knee replacement Consult to Physical Therapy [CONS] Routine Comment: Evaluate, develop and implement POC Reason for Consult: Left Total Knee replacement Consult to Recreational Therapy [CONS] Routine Comment: Evaluate, develop and implement POC Discharging clinician: Justin Neely Anticipated date of discharge: 01/28/17 - Patient Status Disposition: Home, Self-Care Condition: Good Functional capacity at discharge: uses cane/walker Overall status at discharge: patient is progressing back to baseline - Discharge Instructions Follow Up With: Mima Sood [Primary Care Provider] - (Follow up with Leo Echols MD in 2 weeks. [phone] Follow up with Jake Perez MD. Pulmonary Function Test on April 02, 2017 at 2:30. [phone]. ) Additional Instructions: followup with PC in a week needs to have followup INR within a week - Diet and Activity Activity: ambulate only with your walker, as per physical therapy Diet: advance to your usual diet, low salt diet Interval History: Her hospital course has been remarkable for increase in her creatinine and occasionally not participating in her Rehab due to pain and not feeling well . No apparent cause of renal insufficiency is known but I believe that its pre renal in nature. Her creatinine is back to her normal levles . Encourage incease intake . Clinically she is stable and is coming close to her base line Hospital course: Ms. Skinner is a 76 year old female - Time Spent with Patient Total time spent providing and/or coordinating discharge services: - Constitutional Vitals: Temp Pulse Resp BP Pulse Ox 98.5 F 68 18 114/53 95 01/26/17 07:00 01/26/17 07:00 01/26/17 07:00 01/26/17 07:00 01/26/17 07:00 General appearance: Present: cooperative, A&O X 3, pleasant, no acute distress. Absent: severe distress - Head Head exam: Present: normal inspection - Eye Eye exam: Present: EOMI, PERRL, conjuntiva pink. Absent: scleral icterus Pupils: Present: PERRL - Neck Neck exam general surgery: Present: supple. Absent: tenderness, nuchal rigidity Additional comments: [place] radiating to carotids - Respiratory Respiratory exam: Present: CTAB. Absent: prolonged expiratory phase, rales, respiratory distress, rhonchi, stridor, wheezes, tachypnea - Cardiovascular Cardiovascular exam: Present: RRR, +S1, +S2, systolic murmur. Absent: irregular rhythm, JVD, tachycardia - GI/Abdominal GI/Abdominal exam: Present: normal bowel sounds, soft. Absent: diminished bowel sounds, hepatomegaly, rebound, rigid, splenomegaly, tenderness - Extremities Exam Extremities exam: Absent: pedal edema, tenderness - Incison Incision: Present: clean and dry, intact. Absent: draining, red, swollen, erythema, purulent - Neurological Exam Neurological exam: Present: alert, CN II-XII intact, oriented X3, no focal deficits, strengths equal and symetr throughout. Absent: facial droop, speech deficit - VTE Documentation of Mechanical Device: Graduated compression elastic hosiery
[2017-01-26] MEDS: MOM Conc 10 ML UD.LIQ PO PRN (16:01)
[2017-01-26] MEDS: amLODIPine 5 MG TABLET PO SCH (17:59)
[2017-01-26] MEDS ORDERED: *HR* Warfarin 2 MG TABLET PO SCH (18:00)
[2017-01-26] MEDS: Fenofibrate 54 MG TABLET PO SCH (19:20)
[2017-01-27] MEDS: *HR* OxyCODONE/APAP 5/325 TABLET PO PRN (00:25)
[2017-01-27] MEDS: MOM Conc 10 ML UD.LIQ PO PRN (01:41)
[2017-01-27 05:43] LABS: Basophils # 0.1 K/mcL (0.0-0.2); Basophils % 0.6 %; Eosinophils # 0.5 K/mcL (0.0-0.6); Eosinophils % 6.3 %; Hematocrit 26.9 % (35.3-44.9); Hemoglobin 8.8 g/dL (11.5-15.4); Lymphocytes # 1.6 K/mcL (0.6-4.6); Lymphocytes % 20.3 %; Mean Corpuscular HGB Conc 32.7 g/dL (31.6-35.5); Mean Corpuscular Hemoglobin 31.9 pg (28.0-33.3); Mean Corpuscular Volume 97.5 fL (83.0-100.0); Mean Platelet Volume 9.3 fL (9.4-12.4); Monocytes # 0.8 K/mcL (0.0-1.3); Monocytes % 10.3 %; Platelet Count 408 K/mcL (140-400); Red Blood Count 2.76 M/mcL (3.82-4.97); Red Cell Distribution Width 16.7 % (11.5-14.5); Segmented Neutrophils % 61.5 %
[2017-01-27 05:44] LABS: INR 1.6; Prothrombin Time 17.1 Seconds (9.4-12.1)
[2017-01-27 05:57] LABS: Calcium 9.6 mg/dL (8.6-10.8); Potassium 4.6 mEq/L (3.5-4.5)
[2017-01-27 06:03] LABS: Activated Partial Thrombo Time 28.7 Seconds (26.0-36.0)
[2017-01-27 07:12] VITALS: BP 142/61
[2017-01-27] MEDS: Celecoxib 200 MG CAPSULE PO SCH (08:08)
[2017-01-27] MEDS: Aspirin Enteric Coated 325 MG Tablet PO SCH (08:09)
[2017-01-27] MEDS: Cholecalciferol (D-3) 1,000 UNIT TABLET PO SCH (08:10)
[2017-01-27] MEDS: Furosemide 20 MG TABLET PO SCH (08:11)
--- NOTE | 2017-01-27 08:22 | Physician Discharge Referral ---
- Diagnosis (1) HTN (hypertension) Priority: Secondary Status: Chronic (2) CAD (coronary artery disease) Priority: Secondary Status: Chronic (3) Hypothyroid Priority: Secondary Status: Chronic (4) A-fib Priority: Secondary Status: Chronic (5) Anemia Priority: Secondary Status: Chronic (6) Gout Priority: Secondary Status: Chronic (7) Status post knee surgery Priority: Primary Status: Acute (8) Renal insufficiency Priority: Secondary Status: Acute - Respiratory Orders Smoking Cessation: Smoking cessation has been advised. For more information, call the [place] Tobacco Quit Line at 1-478-QHOA-NOW. - Diet/Nutrition Diet/Nutrition Orders: Regular - Activity Activity Orders: Walker - Services Needed Following services are medically necessary services: Physical Therapy, Occupational Therapy - Transfer Medications Home Medications: Albuterol Sulfate [Albuterol Inhaler] 2 puff IH Q4HR PRN 01/18/17 [History] Allopurinol [Zyloprim 100 MG] 100 mg PO DAILY 01/18/17 [History] Aspirin [Ecotrin] 325 mg PO DAILY 01/18/17 [History] Bisoprolol Fumarate [Zebeta] 5 mg PO DAILY 01/18/17 [History] Cholecalciferol (D-3) [Vitamin D] 2,000 unit PO DAILY 01/18/17 [History] Fenofibrate Nanocrystallized [Tricor] 48 mg PO HS 01/18/17 [History] Ferrous Sulfate [Iron] 325 mg PO BIDWM 01/18/17 [History] Lansoprazole [Prevacid] 15 mg PO DAILY PRN 01/18/17 [History] amLODIPine [Norvasc] 5 mg PO DAILY 01/18/17 [History] Docusate [Colace] 100 mg PO BID 01/27/17 [Rx] Furosemide [Lasix] 10 mg PO DAILY tab 01/27/17 [Rx] Levothyroxine [Synthroid] 100 mcg PO DAILY@0630 tab 01/27/17 [Rx] OxyCODONE/APAP 5/325 [Percocet 5/325 MG] 2 each PO Q4HR PRN tab 01/27/17 [Rx] Warfarin [Coumadin] 2 mg PO DAILY@1800 tab 01/27/17 [Rx] Allergies/Adverse Reactions: 3 Allergy/AdvReac Type Severity Reaction Status Date / Time No Known Allergies Allergy Verified 01/18/17 16:20 Certification: Further, I certify that my clinical findings support that this patient is homebound (i.e. absences from home require considerable and taxing effort and are for medical reasons or mandaen services or infrequently or short duration when for other reasons) because: Homebound Reason: Patient requires assistance of a person or device to safely leave home, Leaving home requires considerable and taxing effort due to condition Attestation: My signature below is to certify that this patient is under my care and that I, or nurse practitioner, or a physician's historian research assistant working with me, has a face-to -face encounter with this patient.
[2017-01-27] MEDS ORDERED: Bisacodyl 10 MG RECTAL SUPPOSITORY RC PRN (08:45)
== END 2017-01-27 13:30 | disposition home or self-care (01) | DRG 561 ==
LOC: INPGRE 16:07
PROVIDERS: ADMIT Internal Medicine; ATTEND Internal Medicine